=== PATIENT | female | born 1980 | race Two or more races ===

== ENCOUNTER 2023-01-08 19:22 | Inpatient (IN) | payer MEDICAID, OTHER ==
[~2023-01-08] VITALS: Ht 167.6 cm; Wt 65.0 kg
[2023-01-08 20:27] LABS: Basophils # (auto) 0.1 10 ^3/uL (0-0.2); Basophils % (auto) 0.5 % (0.0-2.0); Eosinophils # (auto) 0 10 ^3/uL (0-0.8); Eosinophils % (auto) 0.3 % (0.0-7.0); Hematocrit 36.4 % (41.0-53.0); Hemoglobin 12.2 g/dL (13.5-17.5); Lymphocytes # (auto) 0.8 10 ^3/uL (0.4-5.4); Lymphocytes % (auto) 5.3 % (10.0-50.0); Mean Corpuscular Hemoglobin 28.4 pg (28.0-32.0); Mean Corpuscular Hgb Conc. 33.7 g/dL (32.0-36.0); Mean Corpuscular Volume 84.2 fL (80.0-100.0); Monocytes # (auto) 0.7 10 ^3/uL (0-1.3); Monocytes % (auto) 4.3 % (0.0-12.0); Neutrophils % (auto) 89.6 % (37.0-80.0); Red Blood Cells 4.32 10^6/uL (4.5-5.90); Red Cell Distribution Width 13.5 % (11.8-14.3); White Blood Cell 15.6 10^3/uL (4.4-10.8)
[2023-01-08 20:48] LABS: Albumin 4.4 g/dL (3.2-4.8); Alkaline Phosphatase 67 U/L (46-116); Anion Gap 7.9 (5-15); Aspartate Aminotransferase 9 U/L (13-40); BUN/Creatinine Ratio 11.9 (10.0-20.0); Bilirubin, Total 0.3 mg/dL (0.2-1.0); Blood Urea Nitrogen 12 mg/dL (9-23); Calcium 8.6 mg/dL (8.7-10.4); Carbon Dioxide 18.1 mmol/L (20-30); Chloride 114 mmol/L (98-107); Glucose 133 mg/dL (74-106); Potassium 3.7 mmol/L (3.5-5.1); Sodium 140 mmol/L (136-145); Total Protein 6.9 g/dL (5.7-8.2)
[2023-01-08 20:58] LABS: Alanine Aminotransferase < 9 U/L (7-40)
[2023-01-08] MEDS ORDERED: LORazepam 2MG/ML-1ML VIAL ONE (21:55)
[2023-01-08] MEDS ORDERED: diphenhdrAMINE HCL 50 MG/1 ML VL ONE (21:55)
[2023-01-08] MEDS ORDERED: HALOPERIDOL LACTATE 5 MG/ML INJ VIAL ONE (21:55)
[2023-01-08 22:19] LABS: Blood Alcohol < 3.0 mg/dL (<10); Lipase 55 U/L (12-53); Magnesium 2.2 mg/dL (1.6-2.6)
[2023-01-08 22:20] LABS: Acetaminophen < 2.0 UG/ML (10.0-20.0)
[2023-01-08 22:28] LABS: Salicylate < 3.0 mg/dL (2.8-20.0)
[2023-01-08] MEDS ORDERED: MIDAZOLAM HCL 5 MG/ML-1ML VIAL IV ONE (23:00)
[2023-01-08] MEDS ORDERED: HALOPERIDOL LACTATE 5 MG/ML INJ VIAL IM ONE ×2 (23:00→23:30)
[2023-01-08] MEDS ORDERED: diphenhdrAMINE HCL 50 MG/1 ML VL IM ONE (23:30)
[2023-01-08] MEDS ORDERED: LORazepam 2MG/ML-1ML VIAL IM ONE (23:30)
[2023-01-09 00:37] LABS: Amphetamine Screen, Urine Neg (NEGATIVE); Barbiturate Scree,Urine Neg (NEGATIVE); Benzodiazephine Screen, Urine Neg (NEGATIVE); Cocaine Screen, Urine Neg (NEGATIVE); Opiate Scree,Urine Neg (NEGATIVE)
[2023-01-09 00:38] LABS: Cannabinoid Screen, Urine Neg (NEGATIVE); Phencyclidine Screen, Urine Neg (NEGATIVE)
[2023-01-09 00:53] LABS: Urine Bacteria NONE SEEN /hpf (None Seen); Urine Blood Negative /uL (Negative); Urine Clarity Clear (Clear); Urine Color Yellow (Yellow); Urine Hyaline Cast FEW /lpf (0 - 2); Urine Mucus FEW (None Seen); Urine Protein, UAD TRACE (Negative); Urine Specific Gravity 1.017 (1.001-1.035); Urine Urobilinogen Normal (Negative); Urine WBC 1 /hpf (0 - 5)
[2023-01-09 01:00] VITALS: PULSE 85; RESP 18
[2023-01-09] MEDS ORDERED: LACTATED RINGER'S 1,000 ML IV ONE (04:30)
[2023-01-09] MEDS ORDERED: InsuLIN REG 1unit/0.01ml Soln (100units/ml) IV ONE (04:30)
[2023-01-09] MEDS ORDERED: cefTRIAXone 1GM/50ML D5W 50 ML IV ONE (04:30)
[2023-01-09] MEDS ORDERED: ONDANSETRON HCL 4 MG/2 ML VIAL IV PRN (07:30)
[2023-01-09] MEDS ORDERED: ACETAMINOPHEN 325 MG TAB PO PRN (07:30)
[2023-01-09] MEDS ORDERED: TEMAZEPAM 15 MG CAP PO PRN (07:30)
[2023-01-09] MEDS ORDERED: DOCUSATE SOD 100 MG CAP PO PRN (07:30)
[2023-01-09] MEDS ORDERED: MORPHINE SULFATE INJ 2 MG/ml SYRG IV PRN (07:30)
[2023-01-09] MEDS ORDERED: NITROGLYCERIN 0.4 MG SL TAB SL PRN (07:30)
[2023-01-09 08:00] VITALS: PULSE 91; RESP 19; O2SAT 97
[2023-01-09 08:03] LABS: Basophils # (auto) 0 10 ^3/uL (0-0.2); Basophils % (auto) 0.2 % (0.0-2.0); Eosinophils # (auto) 0 10 ^3/uL (0-0.8); Hematocrit 34.9 % (36.0-46.0); Hemoglobin 11.4 g/dL (12.2-16.2); Lymphocytes # (auto) 0.9 10 ^3/uL (0.4-5.4); Lymphocytes % (auto) 4.8 % (10.0-50.0); Mean Corpuscular Hemoglobin 27.7 pg (28.0-32.0); Mean Corpuscular Hgb Conc. 32.6 g/dL (32.0-36.0); Mean Corpuscular Volume 84.9 fL (80.0-100.0); Monocytes # (auto) 0.9 10 ^3/uL (0-1.3); Monocytes % (auto) 5.1 % (0.0-12.0); Neutrophils # (auto) 15.9 10 ^3/uL (1.6-8.6); Neutrophils % (auto) 89.9 % (37.0-80.0); Red Blood Cells 4.12 10^6/uL (4.0-5.20); White Blood Cell 17.7 10^3/uL (4.4-10.8)
[2023-01-09 08:15] LABS: Alanine Aminotransferase 11 U/L (7-40); Albumin 4.1 g/dL (3.2-4.8); Alkaline Phosphatase 59 U/L (46-116); Anion Gap 10.4 (5-15); Aspartate Aminotransferase 42 U/L (13-40); BUN/Creatinine Ratio 10.3 (10.0-20.0); Blood Urea Nitrogen 9 mg/dL (9-23); Calcium 8.7 mg/dL (8.5-10.1); Carbon Dioxide 17.6 mmol/L (20-30); Chloride 114 mmol/L (98-107); Glucose 111 mg/dL (74-106); Potassium 3.5 mmol/L (3.5-5.1); Sodium 142 mmol/L (136-145)
[2023-01-09 08:16] LABS: Bilirubin, Total 0.3 mg/dL (0.2-1.0); Total Protein 6.7 g/dL (5.7-8.2)
[2023-01-09] MEDS: SOD CHL 0.45% 1,000 ML IV SCH ×2 (08:46→22:33)
[2023-01-09] MEDS: LORazepam 2MG/ML-1ML VIAL IV PRN (13:44)
[2023-01-09 19:37] VITALS: PULSE 96; RESP 14; O2SAT 98
[2023-01-09 20:13] LABS: Base Excess -6.5 mmol/L (-2.0-2.0)
[2023-01-10] MEDS: LORazepam 2MG/ML-1ML VIAL IV PRN ×4 (00:48→19:09)
[2023-01-10 05:43] LABS: Basophils # (auto) 0 10 ^3/uL (0-0.2); Basophils % (auto) 0.2 % (0.0-2.0); Eosinophils # (auto) 0 10 ^3/uL (0-0.8); Hematocrit 33.7 % (36.0-46.0); Hemoglobin 11.2 g/dL (12.2-16.2); Lymphocytes % (auto) 6.9 % (10.0-50.0); Mean Corpuscular Hemoglobin 28.2 pg (28.0-32.0); Mean Corpuscular Hgb Conc. 33.1 g/dL (32.0-36.0); Mean Corpuscular Volume 85.2 fL (80.0-100.0); Monocytes # (auto) 0.7 10 ^3/uL (0-1.3); Monocytes % (auto) 5.3 % (0.0-12.0); Neutrophils # (auto) 12.2 10 ^3/uL (1.6-8.6); Neutrophils % (auto) 87.6 % (37.0-80.0); Red Blood Cells 3.95 10^6/uL (4.0-5.20); Red Cell Distribution Width 14.1 % (11.8-14.3); White Blood Cell 13.9 10^3/uL (4.4-10.8)
[2023-01-10 06:17] LABS: Alanine Aminotransferase 43 U/L (7-40); Albumin 4.1 g/dL (3.2-4.8); Alkaline Phosphatase 66 U/L (46-116); Anion Gap 13.4 (5-15); Aspartate Aminotransferase 180 U/L (13-40); BUN/Creatinine Ratio 9.6 (10.0-20.0); Bilirubin, Total 0.4 mg/dL (0.2-1.0); Blood Urea Nitrogen 8 mg/dL (9-23); Calcium 8.5 mg/dL (8.7-10.4); Carbon Dioxide 15.6 mmol/L (20-30); Chloride 113 mmol/L (98-107); Glucose 104 mg/dL (74-106); Potassium 3.3 mmol/L (3.5-5.1); Sodium 142 mmol/L (136-145); Total Protein 6.7 g/dL (5.7-8.2)
[2023-01-10 08:05] VITALS: PULSE 111; RESP 22; O2SAT 97
[2023-01-10] MEDS: POTASSIUM CHL 20MEQ/100ML 100 ML IV SCH ×2 (08:22→10:16)
[2023-01-10] MEDS ORDERED: cefTRIAXone 1GM/50ML D5W 50 ML IV SCH (09:00)
[2023-01-10] MEDS: SOD CHL 0.45% 1,000 ML IV SCH (10:10)
[2023-01-10] MEDS ORDERED: cefTRIAXone 1GM/50ML D5W 50 ML IV ONE (11:30)
[2023-01-10] MEDS ORDERED: VANCOMYCIN PER PHARMACY 0 MG IV SCH (11:30)
[2023-01-10] MEDS ORDERED: VANCOMYCIN 1GM/250ML 250 ML IV ONE (12:00)
[2023-01-10] MEDS: DexAMETHasone SOD PHOS 4 MG/1ML SDV INJ IV SCH ×2 (13:15→22:33)
[2023-01-10 14:14] LABS: Alanine Aminotransferase 54 U/L (7-40); Albumin 4.2 g/dL (3.2-4.8); Alkaline Phosphatase 66 U/L (46-116); Anion Gap 11.9 (5-15); Aspartate Aminotransferase 204 U/L (13-40); BUN/Creatinine Ratio 11.1 (10.0-20.0); Bilirubin, Total 0.3 mg/dL (0.2-1.0); Blood Urea Nitrogen 9 mg/dL (9-23); Calcium 8.8 mg/dL (8.5-10.1); Carbon Dioxide 18.1 mmol/L (20-30); Chloride 114 mmol/L (98-107); Glucose 95 mg/dL (74-106); Potassium 4.4 mmol/L (3.5-5.1); Sodium 144 mmol/L (136-145)
[2023-01-10 14:15] LABS: Total Protein 6.9 g/dL (5.7-8.2)
[2023-01-10 17:59] LABS: Basophils # (auto) 0.1 10 ^3/uL (0-0.2); Basophils % (auto) 0.6 % (0.0-2.0); Eosinophils # (auto) 0 10 ^3/uL (0-0.8); Hematocrit 35.3 % (36.0-46.0); Hemoglobin 11.5 g/dL (12.2-16.2); Lymphocytes % (auto) 6.4 % (10.0-50.0); Mean Corpuscular Hemoglobin 28.1 pg (28.0-32.0); Mean Corpuscular Hgb Conc. 32.5 g/dL (32.0-36.0); Mean Corpuscular Volume 86.7 fL (80.0-100.0); Monocytes # (auto) 0.4 10 ^3/uL (0-1.3); Monocytes % (auto) 2.5 % (0.0-12.0); Neutrophils # (auto) 13.7 10 ^3/uL (1.6-8.6); Neutrophils % (auto) 90.5 % (37.0-80.0); Red Blood Cells 4.08 10^6/uL (4.0-5.20); Red Cell Distribution Width 13.9 % (11.8-14.3); White Blood Cell 15.1 10^3/uL (4.4-10.8)
[2023-01-10 18:10] LABS: Chloride 113 mmol/L (98-107); Sodium 141 mmol/L (136-145)
[2023-01-10 18:11] LABS: Anion Gap 12.5 (5-15); Carbon Dioxide 15.5 mmol/L (20-30)
[2023-01-10 18:12] LABS: Calcium 8.6 mg/dL (8.5-10.1)
[2023-01-10 18:16] LABS: BUN/Creatinine Ratio 12.3 (10.0-20.0); Blood Urea Nitrogen 9 mg/dL (9-23); Glucose 91 mg/dL (74-106)
[2023-01-10] MEDS ORDERED: LORazepam 2MG/ML-1ML VIAL IV ONE (19:30)
[2023-01-10 20:00] VITALS: PULSE 91; RESP 13; O2SAT 96
[2023-01-10 21:53] VITALS: PULSE 105; RESP 14; O2SAT 99
[2023-01-10] MEDS ORDERED: MORPHINE SULFATE INJ 2 MG/ml SYRG IV PRN (23:15)
[2023-01-11] MEDS: VANCOMYCIN 1GM/250ML 250 ML IV SCH ×2 (02:20→14:17)
[2023-01-11] MEDS: SOD CHL 0.45% 1,000 ML IV SCH ×2 (05:56→12:50)
[2023-01-11] MEDS: DexAMETHasone SOD PHOS 4 MG/1ML SDV INJ IV SCH ×3 (07:20→22:35)
[2023-01-11 08:20] VITALS: PULSE 98; RESP 16; O2SAT 96
[2023-01-11 08:27] LABS: Basophils # (auto) 0.1 10 ^3/uL (0-0.2); Basophils % (auto) 0.5 % (0.0-2.0); Eosinophils # (auto) 0 10 ^3/uL (0-0.8); Eosinophils % (auto) 0.4 % (0.0-7.0); Hematocrit 32.8 % (36.0-46.0); Hemoglobin 10.8 g/dL (12.2-16.2); Lymphocytes # (auto) 1.6 10 ^3/uL (0.4-5.4); Lymphocytes % (auto) 13.7 % (10.0-50.0); Mean Corpuscular Hemoglobin 27.9 pg (28.0-32.0); Mean Corpuscular Hgb Conc. 32.9 g/dL (32.0-36.0); Mean Corpuscular Volume 84.8 fL (80.0-100.0); Monocytes # (auto) 0.7 10 ^3/uL (0-1.3); Monocytes % (auto) 5.6 % (0.0-12.0); Neutrophils # (auto) 9.5 10 ^3/uL (1.6-8.6); Neutrophils % (auto) 79.8 % (37.0-80.0); Red Blood Cells 3.87 10^6/uL (4.0-5.20); Red Cell Distribution Width 13.6 % (11.8-14.3); White Blood Cell 11.9 10^3/uL (4.4-10.8)
[2023-01-11 08:45] LABS: Chloride 112 mmol/L (98-107); Potassium 3.6 mmol/L (3.5-5.1); Sodium 139 mmol/L (136-145)
[2023-01-11 08:46] LABS: Anion Gap 8.8 (5-15); Calcium 8.6 mg/dL (8.5-10.1); Carbon Dioxide 18.2 mmol/L (20-30)
[2023-01-11 08:51] LABS: BUN/Creatinine Ratio 11.9 (10.0-20.0); Blood Urea Nitrogen 8 mg/dL (9-23); Glucose 96 mg/dL (74-106)
[2023-01-11] MEDS: LORazepam 2MG/ML-1ML VIAL IV PRN ×2 (09:15→20:40)
[2023-01-11] MEDS: CEFTRIAXONE SODIUM 2 GM in D5W 5% 100 ML IV SCH (09:51)
[2023-01-11] MEDS ORDERED: hydrOXYzine 25 MG TAB or CAP PO ONE ×2 (11:30→16:45)
[2023-01-11] MEDS ORDERED: lamoTRIgine 25 MG TAB PO ONE ×2 (11:30→16:45)
[2023-01-11] MEDS ORDERED: QUEtiapine FUMARATE 100 MG TAB PO ONE (11:30)
[2023-01-11] MEDS ORDERED: lamoTRIgine 25 MG TAB ONE (11:37)
[2023-01-11] MEDS: buPROPion HCL 75 MG TAB PO ONE ×2 (13:01→16:36)
[2023-01-11 13:03] LABS: Base Excess -7.6 mmol/L (-2.0-2.0)
[2023-01-11] MEDS: hydrOXYzine 25 MG TAB or CAP PO SCH ×2 (14:00→22:35)
[2023-01-11] MEDS: QUEtiapine FUMARATE 100 MG TAB PO SCH ×3 (14:00→22:35)
[2023-01-11] MEDS: buPROPion HCL 75 MG TAB PO SCH (19:08)
[2023-01-11 20:05] VITALS: PULSE 95; RESP 24; O2SAT 95
[2023-01-11] MEDS: lamoTRIgine 25 MG TAB PO SCH (22:35)
[2023-01-12] VITALS (7 sets, daily range): BP systolic 118–152; BP diastolic 67–92; PULSE 71–92; RESP 15–21; TEMP 97.7–99; O2SAT 96–98
[2023-01-12] MEDS: SOD CHL 0.45% 1,000 ML IV SCH ×2 (00:46→15:30)
[2023-01-12] MEDS: VANCOMYCIN 1GM/250ML 250 ML IV SCH ×2 (02:38→17:24)
[2023-01-12] MEDS: LORazepam 2MG/ML-1ML VIAL IV PRN (06:09)
[2023-01-12] MEDS: QUEtiapine FUMARATE 100 MG TAB PO SCH ×4 (06:09→21:58)
[2023-01-12] MEDS: DexAMETHasone SOD PHOS 4 MG/1ML SDV INJ IV SCH ×3 (06:09→21:58)
[2023-01-12] MEDS: hydrOXYzine 25 MG TAB or CAP PO SCH ×4 (06:09→21:58)
[2023-01-12] MEDS: buPROPion HCL 75 MG TAB PO SCH ×2 (06:33→18:34)
[2023-01-12 08:09] LABS: Basophils # (auto) 0.1 10 ^3/uL (0-0.2); Basophils % (auto) 0.8 % (0.0-2.0); Eosinophils # (auto) 0 10 ^3/uL (0-0.8); Eosinophils % (auto) 0.1 % (0.0-7.0); Hematocrit 34.1 % (36.0-46.0); Hemoglobin 11.2 g/dL (12.2-16.2); Lymphocytes # (auto) 1.2 10 ^3/uL (0.4-5.4); Lymphocytes % (auto) 11.1 % (10.0-50.0); Mean Corpuscular Hemoglobin 27.7 pg (28.0-32.0); Mean Corpuscular Hgb Conc. 32.7 g/dL (32.0-36.0); Mean Corpuscular Volume 84.7 fL (80.0-100.0); Monocytes # (auto) 0.7 10 ^3/uL (0-1.3); Monocytes % (auto) 5.9 % (0.0-12.0); Neutrophils # (auto) 9.3 10 ^3/uL (1.6-8.6); Neutrophils % (auto) 82.1 % (37.0-80.0); Red Blood Cells 4.03 10^6/uL (4.0-5.20); Red Cell Distribution Width 13.6 % (11.8-14.3); White Blood Cell 11.3 10^3/uL (4.4-10.8)
[2023-01-12 08:16] LABS: Anion Gap 11.4 (5-15); Carbon Dioxide 19.6 mmol/L (20-30); Chloride 108 mmol/L (98-107); Potassium 3.3 mmol/L (3.5-5.1); Sodium 139 mmol/L (136-145)
[2023-01-12 08:17] LABS: Calcium 8.7 mg/dL (8.5-10.1)
[2023-01-12 08:21] LABS: Glucose 134 mg/dL (74-106)
[2023-01-12 08:22] LABS: BUN/Creatinine Ratio 12.5 (10.0-20.0); Blood Urea Nitrogen 8 mg/dL (9-23)
[2023-01-12] MEDS ORDERED: POTASSIUM CHL 20 Meq TABLET PO ONE (08:45)
[2023-01-12] MEDS ORDERED: LORazepam 2MG/ML-1ML VIAL IV PRN (09:30)
[2023-01-12 09:36] LABS: INR 1.04 (0.9-1.15); Partial Thromboplastin Time 29.6 SEC (24.5-34.5); Prothrombin Time 10.9 sec (9.3-11.8)
[2023-01-12 09:40] LABS: Alanine Aminotransferase 71 U/L (7-40); Albumin 4.2 g/dL (3.2-4.8); Alkaline Phosphatase 63 U/L (46-116); Anion Gap 8.9 (5-15); Aspartate Aminotransferase 143 U/L (13-40); BUN/Creatinine Ratio 12.5 (10.0-20.0); Bilirubin, Total 0.5 mg/dL (0.2-1.0); Blood Urea Nitrogen 8 mg/dL (9-23); Carbon Dioxide 21.1 mmol/L (20-30); Chloride 108 mmol/L (98-107); Glucose 153 mg/dL (74-106); Potassium 3.3 mmol/L (3.5-5.1); Sodium 138 mmol/L (136-145); Total Protein 6.9 g/dL (5.7-8.2)
[2023-01-12] MEDS: CEFTRIAXONE SODIUM 2 GM in D5W 5% 100 ML IV SCH (10:42)
[2023-01-12] MEDS: lamoTRIgine 25 MG TAB PO SCH ×2 (10:42→21:58)
[2023-01-12] MEDS: HYDROcodone-ACET 5/325MG TAB PO PRN (22:12)
[2023-01-13] MEDS: VANCOMYCIN 1GM/250ML 250 ML IV SCH ×2 (01:10→06:08)
[2023-01-13] MEDS: SOD CHL 0.45% 1,000 ML IV SCH (03:18)
[2023-01-13] MEDS: HYDROcodone-ACET 5/325MG TAB PO PRN ×2 (04:14→09:40)
[2023-01-13 05:00] VITALS: BP 129/80; PULSE 82; RESP 18; TEMP 97.7; O2SAT 97
[2023-01-13] MEDS: QUEtiapine FUMARATE 100 MG TAB PO SCH (05:22)
[2023-01-13] MEDS: hydrOXYzine 25 MG TAB or CAP PO SCH (05:22)
[2023-01-13] MEDS: DexAMETHasone SOD PHOS 4 MG/1ML SDV INJ IV SCH (05:22)
[2023-01-13] MEDS: buPROPion HCL 75 MG TAB PO SCH (06:09)
[2023-01-13 06:15] LABS: Chloride 108 mmol/L (98-107); Potassium 3.5 mmol/L (3.5-5.1); Sodium 139 mmol/L (136-145)
[2023-01-13 06:16] LABS: Calcium 8.7 mg/dL (8.5-10.1)
[2023-01-13 06:20] LABS: Glucose 123 mg/dL (74-106)
[2023-01-13 06:21] LABS: BUN/Creatinine Ratio 16.1 (10.0-20.0); Blood Urea Nitrogen 10 mg/dL (9-23)
[2023-01-13 06:45] LABS: Mean Corpuscular Hemoglobin 28.7 pg (28.0-32.0); Mean Corpuscular Hgb Conc. 34.3 g/dL (32.0-36.0); Mean Corpuscular Volume 83.7 fL (80.0-100.0); Red Blood Cells 3.83 10^6/uL (4.0-5.20); Red Cell Distribution Width 13.3 % (11.8-14.3); White Blood Cell 10.5 10^3/uL (4.4-10.8)
[2023-01-13 06:55] LABS: Band Neutrophils % (manual) 0; Basophils % (manual) 0 (0.0-2.0); Blast Cells 0; Eosinophils % (manual) 0 (0-7); Metamyelocytes % 0; Myelocytes % 0; Promyelocytes % 0; Reactive Lymphocytes 0
[2023-01-13 06:56] LABS: Anion Gap 9.7 (5-15); Carbon Dioxide 21.3 mmol/L (20-30)
[2023-01-13 08:00] VITALS: PULSE 80
[2023-01-13 09:00] VITALS: BP 116/64; PULSE 78; RESP 18; TEMP 97.6; O2SAT 96
[2023-01-13] MEDS: lamoTRIgine 25 MG TAB PO SCH (09:39)
[2023-01-13] MEDS: CEFTRIAXONE SODIUM 2 GM in D5W 5% 100 ML IV SCH (09:39)
[2023-01-13 11:06] LABS: Lymphocytes % (manual) 15 (10.0-50.0); Monocytes % (manual) 3 (0-12)
[2023-01-13 11:07] LABS: Platelet Estimate Adequate
== END 2023-01-13 11:42 | disposition left against medical advice (07) | DRG 812 ==
LOC: EDBD 19:22 → EDSEX 19:22 → ER 19:22 → TELE 01-09 07:32 → TELE-WESTW 01-12 09:55
PROVIDERS: ADMIT Internal Medicine Pulmonary Disease; ATTEND Internal Medicine Pulmonary Disease
DX: T42.6X1A Poisoning by other antiepileptic and sedative-hypnotic drugs, accidental (unintentional), initial encounter (principal); J96.00 Acute respiratory failure, unspecified whether with hypoxia or hypercapnia; G92.8 Other toxic encephalopathy; E87.20 Acidosis, unspecified; E87.3 Alkalosis; F23 Brief psychotic disorder; D64.9 Anemia, unspecified; R45.1 Restlessness and agitation; Z53.29 Procedure and treatment not carried out because of patient's decision for other reasons; F17.200 Nicotine dependence, unspecified, uncomplicated; F31.9 Bipolar disorder, unspecified; F41.0 Panic disorder [episodic paroxysmal anxiety]; R74.01 Elevation of levels of liver transaminase levels; Y92.89 Other specified places as the place of occurrence of the external cause
CPT/HCPCS: 36415; 36600; 70450; 71045; 73060; 80048; 80053; 80178; 80202; 80307; 80320; 80329; 81001; 82010; 82140; 82565; 82805; 82962; 83605; 83690; 83735; 83930; 84443; 84484; 84702; 85007; 85025; 85027; 85610; 85730; 87040; 93005; 93886; 95819; 96372; G0378; J0696; J1100; J2250; J2405; J3480; J7060